=== PATIENT | male | born 1995 | race Caucasian/White ===

== ENCOUNTER 2020-10-10 19:23 | Inpatient (IN) | payer OTHER ==
[2020-10-10] MEDS ORDERED: SODIUM CHLORIDE 0.9% 1,000 ML IV STA (19:25)
[2020-10-10] MEDS ORDERED: DIPH,PERTUS(ACELL)TETVAC-LF 0.5 ML VIAL IM ONE (19:25)
[2020-10-10 19:29] LABS: Glucose,Whole Blood 125 mg/dL (75-99)
[2020-10-10] MEDS ORDERED: LORazepam 2 MG/ML INJ IV STA (19:35)
[2020-10-10] MEDS ORDERED: PROPOFOL 10 MG/ML 20 ML VIAL IV ONE (19:51)
[2020-10-10 20:00] LABS: Basophils # (A) 0.1 k/uL (0-0.2); Basophils % (A) 1 %; Eosinophils # (A) 0.1 k/uL (0-0.7); Eosinophils % (A) 1 %; HCT 45.6 % (39.0-53.0); HGB 15.5 gm/dL (13.0-17.5); Lymphocytes # (A) 3.7 k/uL (1.0-4.8); Lymphocytes % (A) 28 %; MCH 29.6 pg (25.0-35.0); MCHC 33.9 g/dL (31.0-37.0); MCV 87.1 fL (80.0-100.0); Mean Platelet Volume 6.8; Monocytes # (A) 0.6 k/uL (0-1.0); Monocytes % (A) 5 %; Neutrophils # (A) 8.3 k/uL (1.3-7.7); Neutrophils % (A) 63 %; Platelet Count 391 k/uL (150-450); RBC 5.23 m/uL (4.30-5.90); RDW 12.6 % (11.5-15.5); WBC 13.1 k/uL (3.8-10.6)
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
[2020-10-10 20:14] LABS: Prothrombin Time 10.3 sec (9.0-12.0)
[2020-10-10 20:22] LABS: ALT 29 U/L (4-49); AST 38 U/L (17-59); African American GFR (CKD) >90 (>60 ml/min/1.73 sqM); Alkaline Phosphatase 70 U/L (38-126); Anion Gap 13 mmol/L; Blood Urea Nitrogen 11 mg/dL (9-20); Calcium 9.9 mg/dL (8.4-10.2); Carbon Dioxide 24 mmol/L (22-30); Chloride 104 mmol/L (98-107); Creatine Kinase 115 U/L (55-170); Glucose 129 mg/dL (74-99); Non-African American GFR(CKD) >90 (>60 ml/min/1.73 sqM); Potassium 3.9 mmol/L (3.5-5.1); Sodium 141 mmol/L (137-145); Total Bilirubin 0.3 mg/dL (0.2-1.3); Total Protein 7.6 g/dL (6.3-8.2)
[2020-10-10 20:29] LABS: Alcohol 148 mg/dL
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
[2020-10-10 20:52] LABS: Partial Thromboplastin Time 21.8 sec (22.0-30.0)
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
[2020-10-10] MEDS ORDERED: NALOXONE 0.4 MG/ML 1 ML VIAL IV PRN (22:29)
[2020-10-10] MEDS ORDERED: ACETAMINOPHEN TAB 325 MG TAB PO PRN (22:29)
[2020-10-10] MEDS ORDERED: ONDANSETRON 4 MG/2 ML VIAL IVP PRN (22:29)
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
[2020-10-11 03:13] LABS: Appearance,Urine Clear (Clear); Bilirubin,Urine Negative (Negative); Blood,Urine Negative (Negative); Color,Urine Light Yellow; Glucose,Urine (UA) Negative (Negative); Ketones,Urine Negative (Negative); Leukocyte Esterase,Urine Negative (Negative); Nitrite,Urine Negative (Negative); Protein,Urine Trace (Negative); Urobilinogen,Urine <2.0 mg/dL (<2.0)
[2020-10-11 03:24] LABS: Amphetamine Screen,Urine Not Detected (NotDetected); Barbiturate Screen,Urine Not Detected (NotDetected); Benzodiazepines Screen,Urine Detected (NotDetected); Cocaine Screen,Urine Not Detected (NotDetected); Methadone Screen, Urine Not Detected (NotDetected); Opiate Screen,Urine Not Detected (NotDetected); Oxycodone Screen, Urine Not Detected (NotDetected); Phencyclidine Screen,Urine Not Detected (NotDetected); Tricyclic Antidepressant,Urine Not Detected (NotDetected); Urn Cannabinoid Scrn Detected (NotDetected)
[2020-10-11 03:36] LABS: Specific Gravity,Urine 1.046 (1.001-1.035)
[2020-10-11] MEDS: SODIUM CHLORIDE 0.9% 1,000 ML IV SCH ×3 (04:36→18:27)
[2020-10-11] MEDS ORDERED: ASCORBIC ACID 500 MG TAB PO SCH (09:00)
[2020-10-11] MEDS ORDERED: PANTOPRAZOLE 40 MG/10 ML VIAL IV SCH (09:00)
[2020-10-11] MEDS ORDERED: ZINC SULFATE 220 MG CAP PO SCH (09:00)
[2020-10-11] MEDS ORDERED: CHOLECALCIFEROL 25 MCG (1000 IU) TABLET PO SCH (09:00)
[2020-10-11] MEDS ORDERED: THIAMINE 100 MG TAB PO SCH (11:15)
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
[2020-10-11 14:57] VITALS: TEMP 98.2
[2020-10-11 18:29] VITALS: BP 125/69; PULSE 98; RESP 66
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
== END 2020-10-11 19:09 | disposition left against medical advice (07) | DRG 88 ==
LOC: EC 19:23 → 5NMEDONC 22:29 → 4SSUR 23:59
PROVIDERS: ADMIT Surgery; ATTEND Surgery
PROC: 3E0234Z Introduction of Serum, Toxoid and Vaccine into Muscle, Percutaneous Approach (ICD-10-PCS; principal; 2020-10-10)
DX: S06.0X9A Concussion with loss of consciousness of unspecified duration, initial encounter (principal); U07.1 COVID-19; F10.129 Alcohol abuse with intoxication, unspecified; F17.200 Nicotine dependence, unspecified, uncomplicated; Z23 Encounter for immunization; R40.2412 Glasgow coma scale score 13-15, at arrival to emergency department; S01.119A Laceration without foreign body of unspecified eyelid and periocular area, initial encounter; S00.03XA Contusion of scalp, initial encounter; S00.81XA Abrasion of other part of head, initial encounter; S80.212A Abrasion, left knee, initial encounter; S80.211A Abrasion, right knee, initial encounter; F12.90 Cannabis use, unspecified, uncomplicated; F41.9 Anxiety disorder, unspecified; Y90.6 Blood alcohol level of 120-199 mg/100 ml; Z86.14 Personal history of Methicillin resistant Staphylococcus aureus infection; V28.4XXA Motorcycle driver injured in noncollision transport accident in traffic accident, initial encounter
CPT/HCPCS: 36415; 70450; 71045; 71260; 72125; 72170; 74177; 80053; 80306; 80320; 81003; 82550; 84484; 85025; 85610; 85730; 86850; 86900; 86901; 87635; 90471; 90715; 96361; 96365; 96375; 99291

== ENCOUNTER 2020-10-15 01:16 | Emergency (ER) | payer OTHER ==
[2020-10-15 01:25] VITALS: PULSE 86; RESP 16; TEMP 99.1
--- NOTE | 2020-10-15 02:41 | CT ---
EXAM: CT Head Without Intravenous Contrast CLINICAL HISTORY: ITS.REASON CT Reason: r/o basilar skull fracture; bloody drainage rt ear TECHNIQUE: Axial computed tomography images of the head/brain without intravenous contrast. CTDI is 49.27 mGy and DLP is 1086.4 mGy-cm. This CT exam was performed using one or more of the following dose reduction techniques: automated exposure control, adjustment of the mA and/or kV according to patient size, and/or use of iterative reconstruction technique. COMPARISON: 10/10/2020 IMPRESSION: 1. Redemonstration of fracture through the right temporal bone, right petrous apex and temporal calvarium. 2. 6 mm thickness right convexity extra-axial hemorrhage. Minimal right to left midline shift of 1-2 mm. 3. No hydrocephalus. 4. Trace bilateral mastoid effusions. Fluid in the right external auditory canal and middle ear.
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
[2020-10-15] MEDS ORDERED: NICOTINE 21MG/24HR PATCH TRANSDERM STA (03:01)
[2020-10-15] MEDS ORDERED: HYDROcodone/APAP 5-325MG 1 EACH TAB PO STA (03:01)
[2020-10-15 03:32] VITALS: BP 124/95
== END 2020-10-15 03:23 | disposition left against medical advice (07) ==
LOC: EC 01:16
DX: S06.309A Unspecified focal traumatic brain injury with loss of consciousness of unspecified duration, initial encounter (principal); S02.19XA Other fracture of base of skull, initial encounter for closed fracture; F17.200 Nicotine dependence, unspecified, uncomplicated; V29.9XXA Motorcycle rider (driver) (passenger) injured in unspecified traffic accident, initial encounter; Y92.410 Unspecified street and highway as the place of occurrence of the external cause
CPT/HCPCS: 70450; 99283